=== PATIENT | female | born 1955 | race Caucasian/White ===

== ENCOUNTER 2020-09-22 10:02 | Observation (INO) ==
--- NOTE | 2020-09-22 10:18 | Emergency Department Note ---
Impression & Plan DVT (deep venous thrombosis), Occluded PICC line, Gastroparesis ED Provider Note NAME: RODOLFO FLORES AGE: 65 SEX: F : 1955 ARRIVES VIA: Walk-In INFORMANT: Patient, ED PROVIDER(S): Tanner Vasquez DO CHIEF COMPLAINT: Arm swelling HPI: The patient is a 65-year-old female who presented to the emergency department for an evaluation of left upper extremity swelling. The patient had a PICC line placed last Tuesday at [facility] for severe gastroparesis and malnutrition. The patient was to start TPN today. The patient states that she has been using heparin flushes every day at noon. She states that she noticed severe swelling in her left upper extremity which continued to worsen throughout the day. She denies having any nausea or vomiting. She denies having any chest pain or lower extremity swelling. She does complain of pain that goes into her left chest wall her left axilla and down her left arm. She denies having any fever or redness. She has had no recent falls. ROS: See above HPI for pertinent positives & negatives. A total of 10 systems reviewed and were otherwise negative. PAST MEDICAL HISTORY: See Below PAST SURGICAL HISTORY: See Below FAMILY HISTORY: See Below SOCIAL HISTORY: See Below HOME MEDICATIONS: See Below ALLERGIES: See Below VITALS: See Below PHYSICAL EXAMINATION: GENERAL: Patient is awake alert in no acute distress patient is resting comfortably and showing no signs of anxiety EYES: The conjunctivae are clear. The pupils are round and reactive. EARS, NOSE, MOUTH AND THROAT: The nose is without any evidence of any deformity. NECK: The neck is nontender and supple. RESPIRATORY: Normal respiratory effort is noted there is no evidence of wheezing rhonchi or rales CARDIOVASCULAR: Regular rate and rhythm noted there no murmurs rubs or gallops normal S1 normal S2. GASTROINTESTINAL: The abdomen is soft. Abdomen is nontender. MUSCULOSKELETAL/EXTREMITIES: There is no evidence of gross deformity full range of motion is noted in the hips and shoulders. SKIN: Skin is warm and dry. There is edema noted in the left upper extremity. There is tenderness in the medial aspect of the left upper arm that goes into the left axilla. Pulses are symmetric in both wrists. NEUROLOGIC: Patient is awake alert and oriented x3. MEDICAL DECISION MAKING: The patient is a 65-year-old female who presented to the emergency department for an evaluation of left upper extremity swelling. She had a PICC line placed recently for TPN because of severe gastroparesis. The patient presented to the emergency department for rule out DVT. Unfortunately the Doppler of the upper extremity did show a DVT in the axillary as well as subclavian veins. She also had superficial thrombosis in the upper extremity as well. I discussed the patient's laboratory and radiographic studies with her. I also discussed her case with Dr. Aguilar as well as the on-call [facility]. The patient will require inpatient anticoagulation and then further decisions can be made about the patient's need for replacement PICC line and further treatment for the DVT. I discussed this plan with the patient and she was agreeable. The patient did not have chest pain. She was not hypoxic and her vital signs were not unstable. The patient was started on Lovenox in the emergency department. Triage Nursing notes reviewed. Prior medical records reviewed Vital Signs: reviewed and remarkable for elevated blood pressure Differential diagnosis: DVT, musculoskeletal, infection, joint effusion, trauma, lymphedema, idiopathic, CHF, as well as other pathologies. ER treatment provided: See below Diagnostics interpreted by me: ECG: none Cardiac Monitoring: An order was placed for continuous cardiac monitoring. The monitor shows a rate of 75 bpm with sinus rhythm. Laboratory studies: As stated above and show below. Imaging studies: See below Consultation(s): 1240: I discussed this case with Dr. Aguilar. She does recommend anticoagulation and discussion with the admitting team as to what to do with the PICC line. 1305: I discussed this case with Dr. Gonzales who is on-call for the [facility]. ED COURSE: Procedures: none PDMP:reviewed and no issues Critical Care: I have personally spent greater than 45 minutes of critical care time in the direct management of this patient. This includes bedside care, interpretation of diagnostic studies, and testing, discussion with consultants, patient, and family members, and other required patient management activities. This 45 minutes is in excess of all separately billable procedures. Past Med/Surg History Medical History (Updated 09/22/20 @ 15:55 by Tanner Vasquez DO) Gastroparesis Hypothyroid Multiple sclerosis Surgical History H/O reduction mammoplasty H/O thyroidectomy Precancerous nodules, history of thyroid ca. in family H/O: hysterectomy History of appendectomy Previous section Social History Smoking Status: Never smoker Hx Alcohol Use: No Hx Substance Use: No Preferred Language: Australian Communication Ability: Effective Real Estate Investor Required: No Beliefs That Will Affect Care: None Current Living Situation: Alone Other Information That Helps Us Care for You: No Feels Safe at Home: Yes Safety Concerns: Feels Safe At This Time Assistive Devices: Glasses Allergies Allergies Allergy/AdvReac Type Severity Reaction Status Date / Time No Known Allergies Allergy Unverified 09/22/20 11:07 Home Meds Home Medications Medication Instructions Recorded Confirmed cholecalciferol (vitamin D3) 25 mcg PO BID 09/22/20 09/22/20 [Vitamin D3] gabapentin 100 mg PO BID 09/22/20 09/22/20 levothyroxine 125 mcg PO DAILY 09/22/20 09/22/20 linaclotide [Linzess] 145 mcg PO DAILY PRN 09/22/20 09/22/20 omeprazole 40 mg PO DAILY 09/22/20 09/22/20 ondansetron HCl 40 mg PO DAILY PRN 09/22/20 09/22/20 Results & Data (ED) Vital Signs Vital Signs - 24 hr 09/22/20 10:10 09/22/20 10:43 09/22/20 10:50 Temperature 36.4 C L Temperature Source Temporal Artery Scan Pulse Rate 72 64 62 Pulse Rate from SpO2 Sensor 63 63 Respiratory Rate 20 21 19 Respiratory Effort / Characteristics Non-Labored Respiratory Depth Normal Blood Pressure 148/86 H 125/76 Blood Pressure Mean 106 92 Pulse Oximetry 98 98 97 Oxygen Delivery Method Room Air Sepsis Recent Fever Within 48 Hours No Sepsis New/Unexplained Change in Mental Status N/A Sepsis Action Taken by Nursing No Action Required 09/22/20 11:00 09/22/20 11:47 09/22/20 12:00 Temperature Temperature Source Pulse Rate 81 100 H 60 Pulse Rate from SpO2 Sensor 67 Respiratory Rate 16 17 17 Respiratory Effort / Characteristics Respiratory Depth Blood Pressure 135/86 111/76 Blood Pressure Mean 102 87 Pulse Oximetry 97 Oxygen Delivery Method Sepsis Recent Fever Within 48 Hours Sepsis New/Unexplained Change in Mental Status Sepsis Action Taken by Nursing 09/22/20 12:30 09/22/20 13:30 09/22/20 14:00 Temperature Temperature Source Pulse Rate 78 79 68 Pulse Rate from SpO2 Sensor Respiratory Rate 15 18 15 Respiratory Effort / Characteristics Respiratory Depth Blood Pressure 133/76 127/70 145/87 H Blood Pressure Mean 95 89 106 Pulse Oximetry Oxygen Delivery Method Sepsis Recent Fever Within 48 Hours Sepsis New/Unexplained Change in Mental Status Sepsis Action Taken by Nursing 09/22/20 14:30 09/22/20 14:31 09/22/20 15:00 Temperature Temperature Source Pulse Rate 78 70 76 Pulse Rate from SpO2 Sensor Respiratory Rate 21 20 20 Respiratory Effort / Characteristics Respiratory Depth Blood Pressure 141/76 H 138/81 Blood Pressure Mean 97 100 Pulse Oximetry Oxygen Delivery Method Sepsis Recent Fever Within 48 Hours Sepsis New/Unexplained Change in Mental Status Sepsis Action Taken by Nursing 09/22/20 15:30 09/22/20 15:31 Temperature Temperature Source Pulse Rate 68 70 Pulse Rate from SpO2 Sensor Respiratory Rate 15 20 Respiratory Effort / Characteristics Respiratory Depth Blood Pressure 151/83 H Blood Pressure Mean 105 Pulse Oximetry Oxygen Delivery Method Sepsis Recent Fever Within 48 Hours Sepsis New/Unexplained Change in Mental Status Sepsis Action Taken by Prison Medications Current Medication List: was personally reviewed by me Laboratory Data Attestation: I reviewed the patient's lab results. Result diagrams: 09/22/20 10:41 09/22/20 10:41 Lab Results 09/22/20 09/22/20 09/22/20 Range/Units 10:41 10:41 10:41 WBC 6.10 (4.8-10.8) K/uL RBC 5.07 (4.2-5.4) M/uL Hgb 14.6 (12.0-16.0) g/dL Hct 44.2 (37-47) % MCV 87.2 (80-100) fL MCH 28.8 (25-34) pg MCHC 33.0 (32-36) g/dL RDW Std Deviation 43.2 (36.4-46.3) fL RDW Coeff of Oni 13.6 (11.5-14.5) % Plt Count 149 (130-400) K/uL MPV 11.6 H (7.4-10.4) fL Immature Gran % (Auto) 0.2 % Neut % (Auto) 77.0 % Lymph % (Auto) 13.9 % Dyer % (Auto) 7.9 % Eos % (Auto) 0.8 % Baso % (Auto) 0.2 % Neut # (Auto) 4.70 (1.4-6.5) K/uL Lymph # (Auto) 0.85 L (1.2-3.4) K/uL Dyer # (Auto) 0.48 (0.11-0.59) K/uL Eos # (Auto) 0.05 (0-0.5) K/uL Baso # (Auto) 0.01 (0-0.2) K/uL Immature Gran # (Auto) 0.01 (0.00-0.02) K/uL PT 10.7 (9.0-12.0) Seconds INR 1.0 (0.9-1.1) APTT 20.4 L (21.0-31.0) Seconds PTT Ratio 0.7 Sodium 141 (136-145) mmol/L Potassium 3.9 (3.5-5.1) mmol/L Chloride 109 H (98-107) mmol/L Carbon Dioxide 27 (21-32) mmol/L Anion Gap 5.0 (3-11) BUN 8 (7-18) mg/dl Creatinine 0.77 (0.6-1.2) mg/dl Est Cr Clr Drug Dosing 80.1 ml/min Est GFR ( Amer) 94.6 Est GFR (Non-Af Amer) 81.6 BUN/Creatinine Ratio 10.2 (10-20) Glucose 96 (70-99) mg/dl Calcium 9.9 (8.5-10.1) mg/dl Total Bilirubin 1.1 H (0.2-1) mg/dl AST 12 L (15-37) U/L ALT 18 (12-78) U/L Alkaline Phosphatase 99 (45-117) U/L Total Protein 7.5 (6.4-8.2) gm/dl Albumin 4.1 (3.4-5.0) gm/dl Globulin 3.4 (2.5-4.0) gm/dl Albumin/Globulin Ratio 1.2 (0.9-2) COVID-19 Eval Order SARS-CoV-2, RNA, NAAT (NEGATIVE) 09/22/20 09/22/20 Range/Units 13:55 13:55 WBC (4.8-10.8) K/uL RBC (4.2-5.4) M/uL Hgb (12.0-16.0) g/dL Hct (37-47) % MCV (80-100) fL MCH (25-34) pg MCHC (32-36) g/dL RDW Std Deviation (36.4-46.3) fL RDW Coeff of Oni (11.5-14.5) % Plt Count (130-400) K/uL MPV (7.4-10.4) fL Immature Gran % (Auto) % Neut % (Auto) % Lymph % (Auto) % Dyer % (Auto) % Eos % (Auto) % Baso % (Auto) % Neut # (Auto) (1.4-6.5) K/uL Lymph # (Auto) (1.2-3.4) K/uL Dyer # (Auto) (0.11-0.59) K/uL Eos # (Auto) (0-0.5) K/uL Baso # (Auto) (0-0.2) K/uL Immature Gran # (Auto) (0.00-0.02) K/uL PT (9.0-12.0) Seconds INR (0.9-1.1) APTT (21.0-31.0) Seconds PTT Ratio Sodium (136-145) mmol/L Potassium (3.5-5.1) mmol/L Chloride (98-107) mmol/L Carbon Dioxide (21-32) mmol/L Anion Gap (3-11) BUN (7-18) mg/dl Creatinine (0.6-1.2) mg/dl Est Cr Clr Drug Dosing ml/min Est GFR ( Amer) Est GFR (Non-Af Amer) BUN/Creatinine Ratio (10-20) Glucose (70-99) mg/dl Calcium (8.5-10.1) mg/dl Total Bilirubin (0.2-1) mg/dl AST (15-37) U/L ALT (12-78) U/L Alkaline Phosphatase (45-117) U/L Total Protein (6.4-8.2) gm/dl Albumin (3.4-5.0) gm/dl Globulin (2.5-4.0) gm/dl Albumin/Globulin Ratio (0.9-2) COVID-19 Eval Order Covid19 [facility] SARS-CoV-2, RNA, NAAT NEGATIVE (NEGATIVE) Administered Medications Discontinued Medications Enoxaparin Sodium (Enoxaparin 80 Mg/0.8 Ml Syr) 80 mg SQ ONE STA Stop: 09/22/20 13:56 Last Admin: 09/22/20 14:12 Dose: 80 mg Documented by: [id number] Imaging Data Radiologist's Impression: [facility], [id number] Ultrasound Report Patient: RODOLFO FLORES Date: 09/22/20#: [id number]: [address] ID:[id number]: [facility]: [facility] Zip: [place] [id number]: 65Location: EDSex: FRoom/Bed:Att Phy:Diagnosis: NEW PIC LINE, POSS BLOOD CLOTPri Phy: PCP,NOService Date: 09/22/20Fa Phy:Interpreting Phy: Vince Tate MDAdmit Phy: Ordering Phy: Tanner Vasquez DO cc: ~ ULTRASOUND LEFT UPPER EXTREMITY VENOUS CLINICAL HISTORY: Left arm pain and swelling. COMPARISON STUDY: No priors. TECHNIQUE: Real-time, grayscale, and color Doppler sonography of the deep veins of the left upper extremity is performed. Compression and augmentation were utilized. FINDINGS: Occlusive deep venous thrombosis is seen within the left subclavian vein and the left axillary veins around a PICC line. Occlusive superficial venous thrombus is seen within the cephalic vein. Occlusive deep venous thrombosis is seen within branches of the left brachial vein. The left internal jugular vein is patent and normally compressible. The basilic vein is clear. The visualized radial and ulnar veins are patent. IMPRESSION: 1. Occlusive deep venous thrombosis of the left upper extremity as above. 2. Occlusive superficial venous thrombus is seen within the cephalic vein. ACT 112: Negative or not required by law. Electronically signed by: Vince Tate M.D. 09/22/2020 11:48 AM Dictated: 09/22/20 1146Transcribed: 09/22/20 1146 [facility], [phone] XRay Report Patient: RODOLFO FLORES Date: 09/22/20#: [id number]: [address] ID:[id number]: [facility] [id number]: 65Location: EDSex: FRoom/Bed:Att Phy:Diagnosis: NEW PIC LINE, POSS BLOOD CLOTPri Phy: PCP,NOService Date: 09/22/20Fam Phy:Interpreting Phy: Cyrus Dasilva MDAdmit Phy: Ordering Phy: Tanner Vasquez, cc: ~ XR chest 1V not portable HISTORY: left picc not working COMPARISON: None. FINDINGS: The lungs are clear. Cardiac silhouette is normal in size. No pleural effusions. No pneumothorax. The left PICC is intact and terminate at the expected location of the SVC. IMPRESSION: The left PICC is intact and terminates at the expected location of the SVC. ACT 112: Negative or not required by law. Electronically signed by: Cyrus Dasilva M.D. 09/22/2020 10:48 AM Dictated: 09/22/20 1046Transcribed: 09/22/20 1046 Blood Pressure Blood Pressure Findings: Elevated blood pressure Blood Pressure Disposition: further management by hospitalist Discharge Plan Visit Data Chief Complaint: Referred by Doctor Stated Complaint: NEW PIC LINE, POSS BLOOD CLOT ED Provider: Tanner Vasquez Discharge Problem: DVT (deep venous thrombosis), Occluded PICC line, Gastroparesis Patient Disposition: Being Evaluated by Hospitalist Condition: Good Discharge Instructions Interventions: ED Discharge Assessment Last Done: 09/22/20 15:51 Forms Stand Alone Forms: My [facility] [employer] Prescriptions Prescriptions: No Action ondansetron HCl 4 mg tablet 40 mg PO DAILY PRN (Reason: Nausea) RF: 0 omeprazole 40 mg capsule,delayed release(DR/EC) 40 mg PO DAILY RF: 0 levothyroxine 125 mcg tablet 125 mcg PO DAILY RF: 0 gabapentin 100 mg capsule 100 mg PO BID RF: 0 cholecalciferol (vitamin D3) [Vitamin D3] 25 mcg (1,000 unit) Tablet 25 mcg PO BID RF: 0 Linzess 145 mcg capsule 145 mcg PO DAILY PRN (Reason: Constipation) RF: 0 Referrals Referrals: PCP,NO [Primary Care Provider] - Discharge Problem: DVT (deep venous thrombosis) Qualifiers: DVT location: upper extremity Affected thrombotic vein of extremity: axillary Chronicity: acute Laterality: left Qualified Code(s): I82.A12 - Acute embolism and thrombosis of left axillary vein Occluded PICC line Qualifiers: Encounter type: initial encounter Qualified Code(s): T82.898A - Other specified complication of vascular prosthetic devices, implants and grafts, initial encounter
--- NOTE | 2020-09-22 10:49 | XRay Report ---
XR chest 1V not portable HISTORY: left picc not working COMPARISON: None. FINDINGS: The lungs are clear. Cardiac silhouette is normal in size. No pleural effusions. No pneumot horax. The left PICC is intact and terminate at the expected location of the SVC. IMPRESSION: The left PICC is intact and terminates at the expected location of the SVC. ACT 112: Negative or not required by law. Electronically signed by: Cyrus Dasilva M.D. 09/22/2020 10:48 AM
[2020-09-22 10:56] LABS: Basophils # (auto) 0.01 K/uL (0-0.2); Basophils % (auto) 0.2 %; Eosinophils # (auto) 0.05 K/uL (0-0.5); Eosinophils % (auto) 0.8 %; Hematocrit (blood only) 44.2 % (37-47); Hemoglobin 14.6 g/dL (12.0-16.0); Immature Granulocytes # (auto) 0.01 K/uL (0.00-0.02); Immature Granulocytes % (auto) 0.2 %; Lymphocytes # (auto) 0.85 K/uL (1.2-3.4); Lymphocytes % (auto) 13.9 %; Mean Corpuscular Hemoglobin 28.8 pg (25-34); Mean Corpuscular Volume 87.2 fL (80-100); Mean Platelet Volume 11.6 fL (7.4-10.4); Monocytes # (auto) 0.48 K/uL (0.11-0.59); Monocytes % (auto) 7.9 %; Platelet Count 149 K/uL (130-400); RDW Coefficient of Variation 13.6 % (11.5-14.5); RDW Standard Deviation 43.2 fL (36.4-46.3); Red Blood Count 5.07 M/uL (4.2-5.4)
[2020-09-22 11:07] LABS: Partial Thromboplastin Ratio 0.7; Partial Thromboplastin Time 20.4 Seconds (21.0-31.0); Prothrombin Time 10.7 Seconds (9.0-12.0)
[2020-09-22 11:11] LABS: Albumin Level 4.1 gm/dl (3.4-5.0); BUN Creatinine Ratio 10.2 (10-20); Calcium 9.9 mg/dl (8.5-10.1); Creatinine Clr Calc Pharmacy 80.1 ml/min; Est GFR (African American) 94.6; Est GFR (Non-African American) 81.6; Potassium 3.9 mmol/L (3.5-5.1)
[2020-09-22 11:14] LABS: Albumin Globulin Ratio 1.2 (0.9-2); Bilirubin,Total 1.1 mg/dl (0.2-1); Globulin 3.4 gm/dl (2.5-4.0); Total Protein 7.5 gm/dl (6.4-8.2)
--- NOTE | 2020-09-22 11:49 | Ultrasound Report ---
ULTRASOUND LEFT UPPER EXTREMITY VENOUS CLINICAL HISTORY: Left arm pain and swelling. COMPARISON STUDY: No priors. TECHNIQUE: Real-time, grayscale, and color Doppler sonography of the deep veins of the left upper ext remity is performed. Compression and augmentation were utilized. FINDINGS: Occlusive deep venous thrombosis is seen within the left subclavian vein and the left axill mohan veins around a PICC line. Occlusive superficial venous thrombus is seen within the cephalic vein. Occlusive deep venous thrombosis is seen within branches of the left brachial vein. The left interna l jugular vein is patent and normally compressible. The basilic vein is clear. The visualized radial and ulnar veins are patent. IMPRESSION: 1. Occlusive deep venous thrombosis of the left upper extremity as above. 2. Occlusive superficial venous thrombus is seen within the cephalic vein. ACT 112: Negative or not required by law. Electronically signed by: Vince Tate M.D. 09/22/2020 11:48 AM
--- NOTE | 2020-09-22 13:20 | History & Physical Report ---
Date of Service September 22, 2020 Assessment & Plan (1) DVT (deep venous thrombosis): Associated with PICC line - 3 months Lovenox 1mg/kg BID - decided against oral anticoagulation due to unclear absorption given severe gastroparesis IV team to assess PICC line viability - to be left in if viable. Aim home tomorrow. (2) Hypothyroid: No concerns for acute hypo/hyperthyroidism. Continue her usual levothyroxine 125 mcg p.o. daily (3) Gastroparesis: Started end february. NM 4 day emptying scan 48% retention at 6 hours. Small bowel also paralyzed. Planned for 3 months TPN. Considering botox injection in pylorus. Pured diet. (4) Multiple sclerosis: On no medication for disease progression. Admission and Anticipated Discharge Date Admission Date: September 22, 2020 History of Present Illness Primary Care Provider: NO PCP Rosemarie Long is a 65 year old female who presents to the ER with left arm swelling for the past 2 days. She has a significant history of multiple sclerosis with severe gastroparesis under the care of [facility] gastroenterology (Dr Diamond. As part of her care for this she had a PICC line placed last week and was due to start TPN today. However she reports for the last 2 days her left arm has been increasingly swollen and was advised to have this evaluated in the emergency room by her home care nurse. She reports her primary care physician is Dr. Camacho in [place] but has little to do with her ongoing gastroparesis or PICC line. Dr Sridevi Diamond ([facility]), [phone], PICC line placed last Tuesday. Her bottled beverage inspector could not be reached on admission. She reports not being under a neurologist after many years with Dr. Beltran @ [facility]. She has tried multiple medications but get significant side effects usually with tachycardia therefore is on no medications for disease progression. She reports taking prednisone for exacerbations -involving photophobia, ataxia, intention tremor, brain fog. She has had multiple sclerosis which is MRI and lumbar puncture confirmed for the last 40 years. No concern regarding acute flare. In the ER ultrasound venous Doppler left upper extremity confirmed extensive DVT surrounding PICC line. She denies any chest pain or shortness of breath. PICC line viability yet to be assessed by IV team. Allergies Allergy/AdvReac Type Severity Reaction Status Date / Time No Known Allergies Allergy Unverified 09/22/20 11:07 Home Medications Medication Instructions Recorded Confirmed Type cholecalciferol (vitamin D3) 25 mcg PO BID 09/22/20 09/22/20 History [Vitamin D3] gabapentin 100 mg PO BID 09/22/20 09/22/20 History levothyroxine 125 mcg PO DAILY 09/22/20 09/22/20 History linaclotide [Linzess] 145 mcg PO DAILY PRN 09/22/20 09/22/20 History omeprazole 40 mg PO DAILY 09/22/20 09/22/20 History ondansetron HCl 40 mg PO DAILY PRN 09/22/20 09/22/20 History Past Med/Surg History Medical History Gastroparesis Hypothyroid Multiple sclerosis Surgical History H/O reduction mammoplasty H/O thyroidectomy Precancerous nodules, history of thyroid ca. in family H/O: hysterectomy History of appendectomy Previous section Social History Smoking Status: Never smoker Hx Alcohol Use: No Hx Substance Use: No Preferred Language: German Communication Ability: Effective Returned Goods Repairer Required: No Beliefs That Will Affect Care: None Current Living Situation: Alone Other Information That Helps Us Care for You: No Feels Safe at Home: Yes Safety Concerns: Feels Safe At This Time Assistive Devices: Glasses Review of Systems Review of Systems: All systems reviewed & are unremarkable except as noted in HPI & below Physical Exam Constitutional: WD/WN, vitals as above Eyes: + anicteric sclerae; normal pupil size ENMT: external ear and nose normal, oropharynx normal Respiratory: normal respiratory effort, lungs clear to auscultation Cardiovascular: RRR, no murmur, no edema Gastrointestinal (Abdomen): normal bowel sounds, soft, nontender, no hepatosplenomegaly Musculoskeletal: Generalized left upper extremity pitting edema. Neurovascular intact distally. Skin: no rashes, warm and dry Neurologic: moves all extremities and awake; not confused Motor/Sensory: no sensory deficit Psychiatric: A+Ox3, euthymic affect Results & Data Results & Data ([facility]) Vital Signs (Past 12 Hours) Vital Signs Temp Pulse Resp BP Pulse Ox 09/22/20 12:00 60 17 111/76 09/22/20 11:47 100 H 17 09/22/20 11:00 81 16 135/86 97 09/22/20 10:50 62 19 97 09/22/20 10:43 64 21 125/76 98 09/22/20 10:10 36.4 C L 72 20 148/86 H 98 Diagnostic Findings ULTRASOUND LEFT UPPER EXTREMITY VENOUS IMPRESSION: 1. Occlusive deep venous thrombosis of the left upper extremity as above. 2. Occlusive superficial venous thrombus is seen within the cephalic vein. Medications Administered ER medications given: None Code Status & VTE Plan Code Status Full VTE Prophylaxis Plan VTE Prophylaxis will be ordered: Yes PG Care Time/CCT Total # of Minutes Spent Total Time Spent with Patient: Total time spent is greater than 50% in coordination of care (as documented) at patient's floor/unit and/or counseling patient: Coding Level of Care Code 00190 OBS Care - Level 2 Diagnoses DVT (deep venous thrombosis) I82.409 Hypothyroid E03.9 Gastroparesis K31.84 Multiple sclerosis G35
[2020-09-22] MEDS ORDERED: ENOXAPARIN 80 MG/0.8 ML SYR SQ STA (13:55)
[2020-09-22] MEDS ORDERED: ONDANSETRON 4 MG OD TAB PO PRN (16:31)
[2020-09-22] MEDS: CHOLECALCIFEROL 1,000 UNITS 25 MCG TAB PO SCH (20:14)
[2020-09-22] MEDS: GABAPENTIN 100 MG CAP PO SCH (20:15)
[2020-09-22] MEDS ORDERED: PANTOprazole 40 MG TAB PO SCH (21:00)
[2020-09-23] MEDS ORDERED: ENOXAPARIN 80 MG/0.8 ML SYR SQ SCH (04:00)
[2020-09-23] MEDS ORDERED: LEVOTHYROXINE SODIUM 125 MCG TABLET PO SCH (06:30)
[2020-09-23 07:52] VITALS: BP 97/61; PULSE 63; TEMP 97.9; O2SAT 96
[2020-09-23] MEDS: CHOLECALCIFEROL 1,000 UNITS 25 MCG TAB PO SCH (08:56)
[2020-09-23] MEDS: GABAPENTIN 100 MG CAP PO SCH (08:56)
--- NOTE | 2020-09-23 17:28 | Discharge Summary ---
Date of Service September 23, 2020 Admission HPI Per Admitting Provider Rosemarie Long is a 65 year old female who presents to the ER with left arm swelling for the past 2 days. She has a significant history of multiple sclerosis with severe gastroparesis under the care of [facility] gastroenterology (Dr Diamond. As part of her care for this she had a PICC line placed last week and was due to start TPN today. However she reports for the last 2 days her left arm has been increasingly swollen and was advised to have this evaluated in the emergency room by her home care nurse. She reports her primary care physician is Dr. Camacho in [place] but has little to do with her ongoing gastroparesis or PICC line. Dr Sridevi Diamond ([facility]), [phone], PICC line placed last Tuesday. Her freight caller could not be reached on admission. She reports not being under a neurologist after many years with Dr. Beltran @ [facility]. She has tried multiple medications but get significant side effects usually with tachycardia therefore is on no medications for disease progression. She reports taking prednisone for exacerbations -involving photophobia, ataxia, intention tremor, brain fog. She has had multiple sclerosis which is MRI and lumbar puncture confirmed for the last 40 years. No concern regarding acute flare. In the ER ultrasound venous Doppler left upper extremity confirmed extensive DVT surrounding PICC line. She denies any chest pain or shortness of breath. PICC line viability yet to be assessed by IV team. Principal Diagnosis Catheter-associated upper extremity DVT Discharge Exam Constitutional WD/WN, vitals as above Eyes EOM intact bilaterally; no conjunctival abnormality ENMT external ear and nose normal, oropharynx normal Neck trachea midline, no thyromegaly normal visual inspection Respiratory normal respiratory effort, lungs clear to auscultation no respiratory distress Cardiovascular RRR, no murmur, no edema Gastrointestinal (Abdomen) Inspection/Auscultation: abdomen normal to inspection; abdomen not distended Musculoskeletal no cyanosis or clubbing, extremities motor strength 5/5 Skin no rashes, warm and dry Neurologic moves all extremities and awake Psychiatric Orientation: alert, oriented to person and cooperative Discharge Data Allergies Allergy/AdvReac Type Severity Reaction Status Date / Time No Known Allergies Allergy Unverified 09/22/20 11:07 Consultations 09/22/20 12:58 ED Decision to Admit Stat Ordered Studies 09/22/20 10:18 US venous doppler UE LT Urgent Hospital Course (1) DVT (deep venous thrombosis): Associated with PICC line - 3 months = Discussed with Dr. Diamond, her [place] [facility] doctor. The doctor wanted the PICC pulled, so this was done after 24 hours of anticoagulation. Started on a DOAC as Dr. Diamond had low concern for malabsorption. Continue anticoagulation for 3 months. Will need to hold for 3 days prior to EGD/colonoscopy, but this was not yet scheduled, so I think it is fine to do this as UpToDate recommends that anticoagulation is possibly not even needed. The patient was quite reluctant to do self-injections of Lovenox, and preferred the DOAC. (2) Hypothyroid: No concerns for acute hypo/hyperthyroidism. Continue her usual levothyroxine 125 mcg p.o. daily (3) Gastroparesis: Started end february. NM 4 day emptying scan 48% retention at 6 hours. Small bowel also paralyzed. Planned for 3 months TPN. Considering botox injection in pylorus. Pured diet. (4) Multiple sclerosis: On no medication for disease progression. Total Time Total Time Spent Total Time Spent (In Minutes): 35 Discharge Plan Discharge Items Patient Disposition: Home - Self-Care Reason For Visit: UE DVT Discharge Diagnosis: PICC-line related DVT Condition on Discharge: Good Activity: Resume your previous activity Non-emergency contact: Primary Care Provider and Electronic Device Repairer Call non-emergency contact if: your symptoms worsen Follow-up/Referrals: PCP,NO [Primary Care Provider] - Diet: Regular Addtl Attending Provider Instructions: Ms. Hernandez, Saul were admitted to the hospital with an upper extremity DVT that is related to your PICC line. On the recommendation of your GI doctor, we have pulled the PICC line and are starting you on anticoagulation which will help dissolve the blood clot. Dr. Diamond would like to see you in the office within the next week or two to see how you are doing and arrange outpatient colonoscopy and EGD. Your first dose of Eliquis (apixaban) will be tonight before bedtime. Take 2 tablets (10 mg) tonight, and then twice a day for 1 week. After one week (starting on 09/30/2020 in the morning), you need to take 1 tablet (5 mg). Recommendations are not 100%, but it seems like you should probably be on the anticoagulation for approximately 3 months. You can follow with Dr. Diamond or your PCP to continue to manage this. You will need to hold the anticoagulation (apixaban) for 3 days prior to your procedure to make sure your blood isn't too thin in case they need to take biopsies. Pending Studies at Discharge: No Stand-Alone Forms: [facility], Smoking Cessation Medications and DC Order Prescriptions: New apixaban 5 mg (74 tabs) tablets,dose pack See Rx Instructions .ROUTE .COMPLEX Qty: 74 RF: 0 Continued ondansetron HCl 4 mg tablet 40 mg PO DAILY PRN (Reason: Nausea) RF: 0 omeprazole 40 mg capsule,delayed release(DR/EC) 40 mg PO DAILY RF: 0 levothyroxine 125 mcg tablet 125 mcg PO DAILY RF: 0 gabapentin 100 mg capsule 100 mg PO BID RF: 0 cholecalciferol (vitamin D3) [Vitamin D3] 25 mcg (1,000 unit) Tablet 25 mcg PO BID RF: 0 Linzess 145 mcg capsule 145 mcg PO DAILY PRN (Reason: Constipation) RF: 0 Discharge Orders: Discharge Order (Routine); Ordered 09/23/20 Ordered By: Masoud Calderón/Other Patient Handouts: Apixaban oral tablets Admission Data Admit Date/Time: 09/22/20 13:48 Attending Provider: Masoud Rodrigez Admit Provider: Joshua Gonzales Primary Care Provider: PCP,NO Other Providers: Masoud Rodrigez Other Interventions: Discharge Summary Assessment (RN) Last Done: 09/23/20 12:37 Coding Level of Care Code D/C Day Management >30 mins Diagnoses DVT (deep venous thrombosis) I82.409 Hypothyroid E03.9 Gastroparesis K31.84 Multiple sclerosis G35
== END 2020-09-23 13:49 | disposition home or self-care (01) ==
LOC: ED 10:02 → 3W 10:02 → SUATTDRO 13:48 → 3W 15:51